=== PATIENT | female | born 1995 | race American Indian/Alaskan Native ===

== ENCOUNTER 2016-10-07 09:02 | Emergency (ER) | payer MEDICAID, OTHER ==
[2016-10-07 09:12] VITALS: BP 123/83
--- NOTE | 2016-10-07 09:37 | Emergency Department Report ---
ED N/V/D HPI - General Chief complaint: Upper Respiratory Infection Stated complaint: COUGH/FEVER 102/STOMACH PAINS/EMESIS Time Seen by Provider: 10/07/16 09:30 Source: patient Mode of arrival: Ambulatory Limitations: No Limitations - History of Present Illness Initial comments: Patient complaining of cough for the past 2 weeks this progressed to yellow and green sputum in the past several days. Patient complains that she coughed so much that it causes her to vomit. Patient denies dyspnea on exertion, inspiratory chest pain, leg pain, cigarette smoking or control use MD complaint: nausea, vomiting -: week(s) Associated Abdominal Pain: No Pain Scale: 0 - Related Data Previous Rx's Medication Instructions Recorded Last Taken Type Ondansetron [Zofran Odt] 4 mg PO TID PRN #20 tab.rapdis 09/28/14 Unknown Rx Cyclobenzaprine [Flexeril 10mg] 10 mg PO Q8H PRN #15 tablet 01/30/15 Unknown Rx Ibuprofen [Motrin 800 MG tab] 800 mg PO Q8H PRN #21 tablet 01/30/15 Unknown Rx Azithromycin [Zithromax ORAL PWDR] 1 gm PO ONCE #6 packet 10/07/16 Unknown Rx Promethazine /Codeine 5 ml PO Q6H PRN #60 udc 10/07/16 Unknown Rx [Phenergan/Codeine 6.25-10 mg/5Ml] predniSONE [Deltasone] 50 mg PO QDAY #5 tab 10/07/16 Unknown Rx Allergies Allergy/AdvReac Type Severity Reaction Status Date / Time No Known Allergies Allergy Verified 09/28/14 02:26 ED Review of Systems ROS: Stated complaint: COUGH/FEVER 102/STOMACH PAINS/EMESIS Other details as noted in HPI Constitutional: fever, malaise. denies: chills Eyes: denies: eye pain, eye discharge, vision change ENT: denies: ear pain, throat pain Respiratory: denies: cough, shortness of breath, SOB with exertion, SOB at rest , stridor, wheezing Cardiovascular: denies: chest pain, palpitations Gastrointestinal: vomiting. denies: abdominal pain, nausea, diarrhea Genitourinary: denies: urgency, dysuria, discharge Musculoskeletal: denies: back pain, joint swelling, arthralgia Skin: denies: rash, lesions Neurological: denies: headache, weakness, paresthesias Psychiatric: denies: anxiety, depression Hematological/Lymphatic: denies: easy bleeding, easy bruising ED Past Medical Hx - Past Medical History Previous Medical History?: No Additional medical history: Anemia - Surgical History Past Surgical History?: Yes Additional Surgical History: "cyst removed" - Social History Smoking Status: Never Smoker Substance Use Type: None - Medications Home Medications: Home Medications Medication Instructions Recorded Confirmed Last Taken Type Ondansetron [Zofran Odt] 4 mg PO TID PRN #20 tab.rapdis 09/28/14 Unknown Rx Cyclobenzaprine [Flexeril 10mg] 10 mg PO Q8H PRN #15 tablet 01/30/15 Unknown Rx Ibuprofen [Motrin 800 MG tab] 800 mg PO Q8H PRN #21 tablet 01/30/15 Unknown Rx Azithromycin [Zithromax ORAL PWDR] 1 gm PO ONCE #6 packet 10/07/16 Unknown Rx Promethazine /Codeine 5 ml PO Q6H PRN #60 udc 10/07/16 Unknown Rx [Phenergan/Codeine 6.25-10 mg/5Ml] predniSONE [Deltasone] 50 mg PO QDAY #5 tab 10/07/16 Unknown Rx ED Physical Exam - General Limitations: No Limitations General appearance: alert, in no apparent distress - Head Head exam: Present: atraumatic, normocephalic - Eye Eye exam: Present: normal appearance, EOMI - ENT ENT exam: Present: mucous membranes moist - Neck Neck exam: Present: normal inspection, full ROM. Absent: tenderness, meningismus, lymphadenopathy - Respiratory Respiratory exam: Present: normal lung sounds bilaterally. Absent: respiratory distress, wheezes, rales, rhonchi, stridor, chest wall tenderness, accessory muscle use, decreased breath sounds, prolonged expiratory - Cardiovascular Cardiovascular Exam: Present: regular rate. Absent: systolic murmur, diastolic murmur, rubs, gallop - GI/Abdominal GI/Abdominal exam: Present: soft, normal bowel sounds. Absent: distended, tenderness, guarding, rebound, rigid - Extremities Exam Extremities exam: Present: normal inspection - Back Exam Back exam: Present: normal inspection - Neurological Exam Neurological exam: Present: alert, oriented X3 - Psychiatric Psychiatric exam: Present: normal affect, normal mood - Skin Skin exam: Present: warm, dry, intact, normal color. Absent: rash ED Course Vital Signs 10/07/16 09:10 Temperature 98.6 F Pulse Rate 114 H Respiratory 16 Rate Blood Pressure 123/83 O2 Sat by Pulse 100 Oximetry Critical care attestation.: If time is entered above; I have spent that time in minutes in the direct care of this critically ill patient, excluding procedure time. ED Disposition Clinical Impression: URI (upper respiratory infection) Disposition: DISCHARGED TO HOME OR SELFCARE Is pt being admited?: No Condition: Stable Instructions: Upper Respiratory Infection (ED) Prescriptions: Azithromycin [Zithromax ORAL PWDR] 1 gm PO ONCE #6 packet predniSONE [Deltasone] 50 mg PO QDAY #5 tab Promethazine /Codeine [Phenergan/Codeine 6.25-10 mg/5Ml] 5 ml PO Q6H PRN #60 udc PRN Reason: cough Forms: Work/School Release Form(ED) Time of Disposition: 09:49
[2016-10-07] MEDS: ZOFRAN ODT PO ONE (09:48)
== END 2016-10-07 10:15 | disposition home or self-care (01) ==
LOC: ED 09:02
DX: J06.9 Acute upper respiratory infection, unspecified (principal)
CPT/HCPCS: 81025; 99282

== ENCOUNTER 2017-04-21 09:52 | Emergency (ER) | payer SELFPAY ==
--- NOTE | 2017-04-21 10:35 | Emergency Department Report ---
Chief Complaint: Abdominal Pain Stated Complaint: IUD REMOVED SEVERE PELVIC/STOMACH PAIN Time Seen by Provider: 04/21/17 10:32 - HPI History of Present Illness: PT c/o pelvic pain x 2 weeks. pt states she has had an IUD for 4 years and she has been unable to feel the strings for 2 weeks. - ROS Review of Systems: - discharge + pelvic pain - Exam Physical Exam: abd soft mild suprapubic tenderness MSE screening note: Focused history and physical exam performed. Due to findings the following was ordered: labs, us ED Disposition for MSE Condition: Stable
[2017-04-21 10:36] VITALS: BP 122/81
[2017-04-21 11:43] LABS: Bilirubin,Urine NEG (Negative); Blood,Urine NEG (Negative); Ketones,Urine NEG (Negative); Leukocyte Esterase,Urine NEG (Negative); Mucus,Urine FEW /HPF; Nitrite,Urine NEG (Negative); Protein,Urine <15 mg/dL mg/dL (Negative); RBC,Urine < 1.0 /HPF (0.0-6.0); Urobilinogen,Urine < 2.0 mg/dL (<2.0); WBC,Urine < 1.0 /HPF (0.0-6.0)
--- NOTE | 2017-04-21 13:02 | Ultrasound Report ---
Transvaginal and transabdominal pelvic ultrasound. History: Pelvic pain. Findings: The uterus is normal in size and configuration. A linear echogenic structure within the endometrial cavity is consistent with an IUD. No focal uterine abnormalities are seen. The ovaries are normal in size and configuration. A single small cyst is seen within each ovary. No solid masses are seen. There is no fluid within the cul-de-sac. Impression: No significant findings. The echogenic structure within the endometrial cavity is consistent with an IUD.
--- NOTE | 2017-04-21 16:52 | Emergency Department Report ---
ED Female HPI - General Chief complaint: Urogenital-Female Stated complaint: IUD REMOVED SEVERE PELVIC/STOMACH PAIN Time Seen by Provider: 04/21/17 10:32 Source: patient Mode of arrival: Ambulatory Limitations: No Limitations - History of Present Illness Initial comments: Patient is a 21-year-old female who presents due to pelvic pain 2 weeks. Patient states that she has tremor an IUD, patient denies any vaginal discharge or vaginal bleeding. Patient denies any dysuria, hematuria frequency. Patient denies any nausea, vomiting, diarrhea. Patient's dose of her last menstrual cycle was 04/07/2017/ Complaint: pelvic pain Onset/Timin -: week(s) Location: suprapubic, LLQ, RLQ Radiation: non-radiating Quality: cramping Consistency: intermittent Improves with: none Worsens with: none Are you Now?: No Last Menstrual Period: 04/07/17 EDC: 01/12/18 Associated Symptoms: denies other symptoms - Related Data Previous Rx's Medication Instructions Recorded Last Taken Type Ondansetron [Zofran Odt] 4 mg PO TID PRN #20 tab.rapdis 09/28/14 Unknown Rx Cyclobenzaprine [Flexeril 10mg] 10 mg PO Q8H PRN #15 tablet 01/30/15 Unknown Rx Ibuprofen [Motrin 800 MG tab] 800 mg PO Q8H PRN #21 tablet 01/30/15 Unknown Rx Azithromycin [Zithromax ORAL PWDR] 1 gm PO ONCE #6 packet 10/07/16 Unknown Rx Promethazine /Codeine 5 ml PO Q6H PRN #60 udc 10/07/16 Unknown Rx [Phenergan/Codeine 6.25-10 mg/5Ml] predniSONE [Deltasone] 50 mg PO QDAY #5 tab 10/07/16 Unknown Rx Allergies Allergy/AdvReac Type Severity Reaction Status Date / Time No Known Allergies Allergy Verified 09/28/14 02:26 ED Review of Systems ROS: Stated complaint: IUD REMOVED SEVERE PELVIC/STOMACH PAIN Other details as noted in HPI Comment: All other systems reviewed and negative Constitutional: no symptoms reported. denies: chills, diaphoresis, fever, malaise, weakness Eyes: denies: eye pain Gastrointestinal: abdominal pain. denies: nausea, vomiting, diarrhea Genitourinary: denies: urgency, dysuria, frequency, hematuria, discharge, abnormal menses, dyspareunia Musculoskeletal: denies: back pain, joint swelling, arthralgia Skin: denies: rash Neurological: denies: headache ED Past Medical Hx - Past Medical History Previous Medical History?: Yes Additional medical history: Anemia - Surgical History Past Surgical History?: Yes Additional Surgical History: "cyst removed", IUD placed - Social History Smoking Status: Never Smoker - Medications Home Medications: Home Medications Medication Instructions Recorded Confirmed Last Taken Type Ondansetron [Zofran Odt] 4 mg PO TID PRN #20 tab.rapdis 09/28/14 Unknown Rx Cyclobenzaprine [Flexeril 10mg] 10 mg PO Q8H PRN #15 tablet 01/30/15 Unknown Rx Ibuprofen [Motrin 800 MG tab] 800 mg PO Q8H PRN #21 tablet 01/30/15 Unknown Rx Azithromycin [Zithromax ORAL PWDR] 1 gm PO ONCE #6 packet 10/07/16 Unknown Rx Promethazine /Codeine 5 ml PO Q6H PRN #60 udc 10/07/16 Unknown Rx [Phenergan/Codeine 6.25-10 mg/5Ml] predniSONE [Deltasone] 50 mg PO QDAY #5 tab 10/07/16 Unknown Rx ED Physical Exam - General Limitations: No Limitations General appearance: alert, in no apparent distress - Head Head exam: Present: atraumatic, normocephalic - Eye Eye exam: Present: normal appearance - Neck Neck exam: Present: normal inspection - GI/Abdominal GI/Abdominal exam: Present: soft. Absent: distended, tenderness, guarding, rebound, rigid - External exam: Present: normal external exam. Absent: erythema, swelling, lesions, lacerations, ecchymosis Speculum exam: Present: normal speculum exam. Absent: vaginal discharge, cervical discharge, vaginal bleeding, foreign body, tissue, laceration Bi-manual exam: Present: normal bi-manual exam, adnexal tenderness. Absent: cervical motion tendernes, uterine enlargement, uterine tenderness - Extremities Exam Extremities exam: Present: normal inspection - Back Exam Back exam: Present: normal inspection, full ROM. Absent: tenderness - Neurological Exam Neurological exam: Present: alert, oriented X3, normal gait ED Course Vital Signs 04/21/17 10:32 Temperature 98.7 F Pulse Rate 66 Respiratory 16 Rate Blood Pressure 122/81 O2 Sat by Pulse 98 Oximetry ED Medical Decision Making - Medical Decision Making Patient was in NAD, mcarthur had mild pelvic tenderness. Patient had no CMT, patient had mild adnexal tenderness. No vaginal bleeding. patient eloped from the ER before her wet prep resulted. patient was informed of the US results prior to discharge. IUD was seen in the endometrium, patient had a small cyst in the bilateral ovaries. - Differential Diagnosis PID, ovarian cysts, cervicitis Critical care attestation.: If time is entered above; I have spent that time in minutes in the direct care of this critically ill patient, excluding procedure time. ED Disposition Clinical Impression: Pelvic pain Ovarian cyst Qualifiers: Laterality: bilateral Qualified Code(s): N83.201 - Unspecified ovarian cyst, right side; N83.202 - Unspecified ovarian cyst, left side Disposition: Z-07 ELOPED Is pt being admited?: No Does the pt Need Aspirin: No Condition: Good Instructions: Ovarian Cyst (ED), Chronic Pelvic Pain in Women (ED) Referrals: PRIMARY CARE, [Primary Care Provider] - 3-5 Days Time of Disposition: 16:59
== END 2017-04-21 15:50 | disposition left against medical advice (07) ==
LOC: ED 09:52
DX: N83.201 Unspecified ovarian cyst, right side (principal); N83.202 Unspecified ovarian cyst, left side; R10.2 Pelvic and perineal pain; D64.9 Anemia, unspecified
CPT/HCPCS: 76830; 76856; 81001; 81025; 87210; 87591

== ENCOUNTER 2018-12-08 17:08 | Emergency (ER) | payer MEDICAID, OTHER ==
[2018-12-08 17:20] VITALS: BP 138/78
--- NOTE | 2018-12-08 17:33 | Emergency Department Report ---
Blank Doc - Documentation Documentation: This is a 23-year-old female that presents with chest pain with walking and deep breathing. Also has some headache. This initial assessment/diagnostic orders/clinical plan/treatment(s) is/are subject to change based on patient's health status, clinical progression and re-assessment by fellow clinical providers in the ED. Further treatment and workup at subsequent clinical providers discretion. Patient/guardians urged not to elope from the ED as their condition may be serious if not clinically assessed and managed. Initial orders include: 1- Patient sent to [facility] for further evaluation and treatment 2- labs 3- CXR 4- EKG
[2018-12-08 18:02] LABS: Basophils % (Auto) 0.4 % (0.0-1.8); Eosinophils # (Auto) 0.1 K/mm3 (0.0-0.4); Eosinophils % (Auto) 1.9 % (0.0-4.3); Hematocrit 38.8 % (30.3-42.9); Lymphocytes # (Auto) 1.5 K/mm3 (1.2-5.4); Lymphocytes % (Auto) 22.7 % (13.4-35.0); Mean Corpuscular HGB Conc 34 % (30-34); Mean Corpuscular Volume 81 fl (79-97); Monocytes # (Auto) 0.6 K/mm3 (0.0-0.8); Monocytes % (Auto) 8.9 % (0.0-7.3); Platelet Count 305 K/mm3 (140-440); Red Blood Count 4.77 M/mm3 (3.65-5.03); Red Cell Distribution Width 13.4 % (13.2-15.2)
[2018-12-08 18:16] LABS: BUN/Creatinine Ratio 13; Blood Urea Nitrogen 8 mg/dL (7-17); Calcium 9.4 mg/dL (8.4-10.2); Hemolysis Index 6
[2018-12-08] MEDS ORDERED: DELTASONE PO ONE (18:18)
--- NOTE | 2018-12-08 18:19 | Emergency Department Report ---
ED Back Pain/Injury HPI - General Chief Complaint: Chest Pain Stated Complaint: JAREK/HEADACHES Time Seen by Provider: 12/08/18 17:31 Source: patient Limitations: No Limitations - History of Present Illness Initial Comments: She is a 23-year-old female comes to emergency room complaining of chest pain that worsens with movement. The pain is exacerbated by her doing her child sarah beth ch is working in a [employer]. Patient denies cigarette alcohol or tobacco. She denies significant medical history. She is on no home medications. Last menstrual cycle was 10-31-18 Patient is ambulatory, nontoxic AND AFEBRILE - Related Data Previous Rx's Medication Instructions Recorded Last Taken Type Ondansetron [Zofran Odt] 4 mg PO TID PRN #20 tab.rapdis 09/28/14 Unknown Rx Cyclobenzaprine [Flexeril 10mg] 10 mg PO Q8H PRN #15 tablet 01/30/15 Unknown Rx Ibuprofen [Motrin 800 MG tab] 800 mg PO Q8H PRN #21 tablet 01/30/15 Unknown Rx Azithromycin [Zithromax ORAL PWDR] 1 gm PO ONCE #6 packet 10/07/16 Unknown Rx Promethazine /Codeine 5 ml PO Q6H PRN #60 udc 10/07/16 Unknown Rx [Phenergan/Codeine 6.25-10 mg/5Ml] predniSONE [Deltasone] 50 mg PO QDAY #5 tab 10/07/16 Unknown Rx Allergies Allergy/AdvReac Type Severity Reaction Status Date / Time No Known Allergies Allergy Verified 12/08/18 17:14 ED Review of Systems ROS: Stated complaint: JAREK/HEADACHES Other details as noted in HPI Comment: All other systems reviewed and negative ED Past Medical Hx - Past Medical History Medical history: no medical history Anemia Family history: no significant family history ED Back Pain Physical Exam - Exam General: Vital signs noted. No distress. Alert and acting appropriately. A/O X4 MAEW S1ST HR 90 LUNGS CTA ABD SNT NO CVA TENDERNESS Back/Abdomen: No Abdominal Tenderness, No Perithoracic Tenderness, No Perilumbar Tenderness, No Sacroiliac Tenderness, No Flank Tenderness, No Straight Leg Raise Pain Neuro: Yes Normal Sensation, Yes Normal DTR's, Yes Normal Gait, No Motor Weakness ED Course Vital Signs 12/08/18 12/08/18 17:19 17:32 Temperature 98.8 F 98.8 F Pulse Rate 107 H 107 H Respiratory 16 16 Rate Blood Pressure 138/78 Blood Pressure 138/78 [Left] O2 Sat by Pulse 100 100 Oximetry Ed Back Pain Tests - Tests Tests: Normal UA ED Medical Decision Making - Lab Data Result diagrams: 12/08/18 17:45 12/08/18 17:45 - Medical Decision Making Vital Signs (72 hours) 12/08/18 12/08/18 17:19 17:32 Temperature 98.8 F 98.8 F Pulse Rate 107 H 107 H Respiratory 16 16 Rate Blood Pressure 138/78 Blood Pressure 138/78 [Left] O2 Sat by Pulse 100 100 Oximetry Labs 12/08/18 12/08/18 12/08/18 17:45 17:45 17:45 WBC 6.8 RBC 4.77 Hgb 13.0 Hct 38.8 MCV 81 MCH 27 L MCHC 34 RDW 13.4 Plt Count 305 Lymph % (Auto) 22.7 [place] % (Auto) 8.9 H Eos % (Auto) 1.9 Baso % (Auto) 0.4 Lymph # 1.5 [place] # 0.6 Eos # 0.1 Baso # 0.0 Seg Neutrophils % 66.1 Seg Neutrophils # 4.5 Sodium 137 Potassium 3.6 Chloride 102.4 Carbon Dioxide 24 Anion Gap 14 BUN 8 Creatinine 0.6 L Estimated GFR > 60 BUN/Creatinine Ratio 13 Glucose 121 H Calcium 9.4 Troponin T < 0.010 HCG, Qual Positive Urine Color Urine Turbidity Urine pH Ur Specific [place] Urine Protein Urine Glucose (UA) Urine Ketones Urine Blood Urine Nitrite Ur Reducing Substances Urine Bilirubin Urine Ictotest Urine Urobilinogen Ur Leukocyte Esterase Urine WBC (Auto) Urine RBC (Auto) U Epithel Cells (Auto) Urine Mucus Urine HCG, Qual 12/08/18 18:00 WBC RBC Hgb Hct MCV MCH MCHC RDW Plt Count Lymph % (Auto) [place] % (Auto) Eos % (Auto) Baso % (Auto) Lymph # [place] # Eos # Baso # Seg Neutrophils % Seg Neutrophils # Sodium Potassium Chloride Carbon Dioxide Anion Gap BUN Creatinine Estimated GFR BUN/Creatinine Ratio Glucose Calcium Troponin T HCG, Qual Urine Color Yellow Urine Turbidity Clear Urine pH 6.0 Ur Specific [place] 1.020 Urine Protein <15 mg/dl Urine Glucose (UA) Neg Urine Ketones Tr Urine Blood Neg Urine Nitrite Neg Ur Reducing Substances Not Reportable Urine Bilirubin Neg Urine Ictotest Not Reportable Urine Urobilinogen < 2.0 Ur Leukocyte Esterase Neg Urine WBC (Auto) 1.0 Urine RBC (Auto) 1.0 U Epithel Cells (Auto) < 1.0 Urine Mucus Few Urine HCG, Qual Positive A PREG POS PT WILL FOLLOW UP WITH OBGYN Critical care attestation.: If time is entered above; I have spent that time in minutes in the direct care of this critically ill patient, excluding procedure time. ED Disposition Clinical Impression: , Musculoskeletal pain Disposition: DC-01 TO HOME OR SELFCARE Is pt being admited?: No Does the pt Need Aspirin: No Condition: Stable Instructions: (ED) Additional Instructions: HYDRATE WELL WITH WATER TYLENOL FOR PAIN FOLLOW UP OBGYN VITAMIN Referrals: MERNA GARCIA MD [Staff Physician] - 3-5 Days Forms: Work/School Release Form(ED) Time of Disposition: 18:35
[2018-12-08 18:31] LABS: HCG Qualitative,Urine Positive (Negative)
[2018-12-08 18:34] LABS: Bilirubin,Urine NEG (Negative); Blood,Urine NEG (Negative); Color,Urine Yellow (Yellow); Mucus,Urine FEW /HPF; Protein,Urine <15 mg/dL mg/dL (Negative); Urobilinogen,Urine < 2.0 mg/dL (<2.0)
== END 2018-12-08 18:45 | disposition home or self-care (01) ==
LOC: ED 17:08
DX: O26.891 Other specified pregnancy related conditions, first trimester (principal); R07.89 Other chest pain; Z79.899 Other long term (current) drug therapy
CPT/HCPCS: 36415; 80048; 81001; 81025; 84484; 84703; 85025; 93005; 93010; 99283; J7512

== ENCOUNTER 2019-01-03 09:15 | Emergency (ER) | payer MEDICAID, OTHER ==
[2019-01-03] MEDS ORDERED: ZOFRAN IV ONE (10:33)
[2019-01-03] MEDS ORDERED: NACL 0.9% 1000 ML 1,000 ML IV ONE (10:33)
[2019-01-03 11:10] LABS: Hematocrit 42.2 % (30.3-42.9); Hemoglobin 14.1 gm/dl (10.1-14.3); Mean Corpuscular HGB Conc 33 % (30-34); Mean Corpuscular Volume 81 fl (79-97); Platelet Count 287 K/mm3 (140-440); Red Blood Count 5.21 M/mm3 (3.65-5.03); Red Cell Distribution Width 13.3 % (13.2-15.2)
[2019-01-03 11:29] LABS: BUN/Creatinine Ratio 13; Blood Urea Nitrogen 5 mg/dL (7-17); Hemolysis Index 17
--- NOTE | 2019-01-03 11:33 | Emergency Department Report ---
ED HPI - General Chief complaint: Nausea/Vomiting/Diarrhea Stated complaint: 9WKS/VOMIT Time Seen by Provider: 01/03/19 10:19 Source: patient Mode of arrival: Ambulatory Limitations: No Limitations - History of Present Illness Initial comments: This 23-year-old female presents to the ED complaining of nausea vomiting and currently about 9 weeks . Patient states she is followed by left [facility]. Patient states that for the past 3-4 weeks she has been having intermittent nausea vomiting. Patient states she has not finalized medicated process events that she is to pending. Patient denies any vaginal bleeding, abdominal or pelvic pain, fever, any other symptoms. - Related Data Previous Rx's Medication Instructions Recorded Last Taken Type Ondansetron [Zofran Odt] 4 mg PO TID PRN #20 tab.rapdis 09/28/14 Unknown Rx Cyclobenzaprine [Flexeril 10mg] 10 mg PO Q8H PRN #15 tablet 01/30/15 Unknown Rx Ibuprofen [Motrin 800 MG tab] 800 mg PO Q8H PRN #21 tablet 01/30/15 Unknown Rx Azithromycin [Zithromax ORAL PWDR] 1 gm PO ONCE #6 packet 10/07/16 Unknown Rx Promethazine /Codeine 5 ml PO Q6H PRN #60 udc 10/07/16 Unknown Rx [Phenergan/Codeine 6.25-10 mg/5Ml] predniSONE [Deltasone] 50 mg PO QDAY #5 tab 10/07/16 Unknown Rx Doxylamine Succinate/Vit B6 2 each PO QHS #60 tablet. 01/03/19 Unknown Rx [Dinora Guidry 10-10 mg Tablet] Allergies Allergy/AdvReac Type Severity Reaction Status Date / Time No Known Allergies Allergy Verified 12/08/18 17:14 ED Review of Systems ROS: Stated complaint: 9WKS/VOMIT Other details as noted in HPI Comment: All other systems reviewed and negative ED Past Medical Hx - Past Medical History Previous Medical History?: No Additional medical history: Anemia - Surgical History Past Surgical History?: No Additional Surgical History: "cyst removed", IUD placed - Social History Smoking Status: Never Smoker Substance Use Type: None - Medications Home Medications: Home Medications Medication Instructions Recorded Confirmed Last Taken Type Ondansetron [Zofran Odt] 4 mg PO TID PRN #20 tab.rapdis 09/28/14 Unknown Rx Cyclobenzaprine [Flexeril 10mg] 10 mg PO Q8H PRN #15 tablet 01/30/15 Unknown Rx Ibuprofen [Motrin 800 MG tab] 800 mg PO Q8H PRN #21 tablet 01/30/15 Unknown Rx Azithromycin [Zithromax ORAL PWDR] 1 gm PO ONCE #6 packet 10/07/16 Unknown Rx Promethazine /Codeine 5 ml PO Q6H PRN #60 udc 10/07/16 Unknown Rx [Phenergan/Codeine 6.25-10 mg/5Ml] predniSONE [Deltasone] 50 mg PO QDAY #5 tab 10/07/16 Unknown Rx Doxylamine Succinate/Vit B6 2 each PO QHS #60 tablet.dr 01/03/19 Unknown Rx [Diclegis Dr 10-10 mg Tablet] ED Physical Exam - General Limitations: No Limitations General appearance: alert, in no apparent distress - Head Head exam: Present: atraumatic, normocephalic - Eye Eye exam: Present: normal appearance - ENT ENT exam: Present: mucous membranes moist - Neck Neck exam: Present: normal inspection - Respiratory Respiratory exam: Present: normal lung sounds bilaterally. Absent: respiratory distress - Cardiovascular Cardiovascular Exam: Present: regular rate, normal rhythm. Absent: systolic murmur, diastolic murmur, rubs, gallop - GI/Abdominal GI/Abdominal exam: Present: soft, normal bowel sounds. Absent: distended, tenderness, mass - Extremities Exam Extremities exam: Present: normal inspection - Back Exam Back exam: Present: normal inspection - Neurological Exam Neurological exam: Present: alert, oriented X3 - Psychiatric Psychiatric exam: Present: normal affect, normal mood - Skin Skin exam: Present: warm, dry, intact, normal color. Absent: rash ED Course Vital Signs 01/03/19 09:23 Temperature 98.3 F Pulse Rate 89 Respiratory 16 Rate Blood Pressure 124/69 O2 Sat by Pulse 100 Oximetry ED Medical Decision Making - Lab Data Result diagrams: 01/03/19 10:50 01/03/19 10:50 - Medical Decision Making 23-year-old female presents with nausea vomiting . All labs within normal limits patient slightly dehydrated Patient received 1 L of fluids, Zofran in the ED. Vomiting resolved during ED. Patient reports feeling much better after administration of fluids and medicine. Discussed follow-up with the [facility] once her Medicaid is active. Patient is in no acute distress. She understands instructions. She is able to speak in clear sentences. There is no active vomiting upon discharge. Critical care attestation.: If time is entered above; I have spent that time in minutes in the direct care of this critically ill patient, excluding procedure time. ED Disposition Clinical Impression: Nausea and vomiting during Disposition: DC- TO HOME OR SELFCARE Is pt being admited?: No Does the pt Need Aspirin: No Condition: Stable Instructions: Morning Sickness (ED), (ED), Hyperemesis Gravidarum (ED) Additional Instructions: Make sure to follow up with the primary care physician as discussed. Take all your medications as you've been prescribed. If you have any worsening symptoms or develop new symptoms please return to ED immediately. Prescriptions: Doxylamine Succinate/Vit B6 [Dinora Guidry 10-10 mg Tablet] 2 each PO QHS #60 tablet. Referrals: [facility] [Other] - 3-5 Days [facility] [Provider Group] - 3-5 Days [facility] [Provider Group] - 3-5 Days Forms: Accompanied Note, Work/School Release Form(ED) Time of Disposition: 13:31
[2019-01-03 13:01] LABS: Bacteria,Urine 2+ /HPF (Negative); Bilirubin,Urine NEG (Negative); Blood,Urine NEG (Negative); Color,Urine Yellow (Yellow); Protein,Urine <15 mg/dL mg/dL (Negative); Urobilinogen,Urine < 2.0 mg/dL (<2.0)
[2019-01-03 13:04] LABS: WBC,Urine < 1.0 /HPF (0.0-6.0)
[2019-01-03 14:11] VITALS: BP 120/70
== END 2019-01-03 14:09 | disposition home or self-care (01) ==
LOC: ED 09:15
DX: O21.9 Vomiting of pregnancy, unspecified (principal); Z3A.01 Less than 8 weeks gestation of pregnancy
CPT/HCPCS: 36415; 80048; 81001; 85027; 96361; 96374; 99283; J2405; J7030